=== PATIENT | male | born 1980 | race Caucasian/White ===

== ENCOUNTER 2020-09-03 15:56 | Emergency (ER) | payer OTHER, SELFPAY ==
--- NOTE | ~2020-09-03 | XR_ITS ---
EXAMINATION: XR elbow RT min 3V DATE: 09/03/2020 17:09 INDICATION: Right elbow injury. TECHNIQUE: 4 views of right elbow were obtained. COMPARISON: None. FINDINGS: Bone alignment is normal. No fracture. Joint spaces are well maintained. There is no elbow joint effu heaven. IMPRESSION: 1. No fracture. Reviewed, dictated and finalized at location A. H GRADE TEACHER IMPRESSION: 1. No fracture.
--- NOTE | ~2020-09-03 | XR_ITS ---
EXAMINATION: XR knee LT min 4V DATE: 09/03/2020 17:09 INDICATION: Left knee pain. Injury. TECHNIQUE: 4 views of left knee were obtained. COMPARISON: None. FINDINGS: Bone alignment is normal. No fracture. There is mild osteoarthritis of lateral compartment. No knee joint effusion. IMPRESSION: 1. Mild left knee osteoarthritis. Reviewed, dictated and finalized at location A. ATE SECTOR EXECUTIVE
--- NOTE | ~2020-09-03 | XR_ITS ---
EXAMINATION: XR shoulder RT min 2V DATE: 09/03/2020 17:10 INDICATION: Right shoulder pain. Injury. TECHNIQUE: 4 views of right shoulder were obtained. COMPARISON: None. FINDINGS: Bone alignment is normal. No fracture. There is mild osteoarthritis of acromioclavicular poly int. Glenohumeral joint is normal. IMPRESSION: 1. Mild right acromioclavicular joint osteoarthritis. Reviewed, dictated and finalized at location A. E CHECKER
--- NOTE | ~2020-09-03 | CT_ITS ---
EXAMINATION: CT UE RT wo con DATE: 09/03/2020 19:32 INDICATION: Right upper limb injury and pain. TECHNIQUE: Computed tomography (CT) of the right upper limb from the shoulder to the fingers was perf ormed without intravenous contrast. Automated exposure control and iterative reconstruction technique were employed. The dose-length product was 414.98 mGy-cm. COMPARISON: None FINDINGS: There is a displaced comminuted fracture of base of second metacarpal. There is a nondispla kimberlee fracture of the capitate. There is a comminuted fracture of fourth metacarpal. There is a 3 mm lo ose body dorsal to scaphoid. There is mild osteoarthritis of the elbow joint and acromioclavicular poly int. IMPRESSION: 1. Fractures of the second and fourth metacarpals and capitate. Reviewed, dictated and finalized at location A. STONE ERECTOR
--- NOTE | ~2020-09-03 | XR_ITS ---
EXAMINATION: XR humerus RT DATE: 09/03/2020 17:09 INDICATION: Right shoulder pain. Injury. TECHNIQUE: 2 views of right humerus were obtained. COMPARISON: None. FINDINGS: Bone alignment is normal. No fracture. Joint spaces are well maintained. IMPRESSION: 1. No fracture. Reviewed, dictated and finalized at location A. CHOPPER IMPRESSION: 1. No fracture.
--- NOTE | ~2020-09-03 | XR_ITS ---
EXAMINATION: XR chest 1V DATE: 09/03/2020 17:09 INDICATION: Right shoulder pain. Injury. TECHNIQUE: A single frontal view of the chest was obtained. COMPARISON: None. FINDINGS: The left lateral costophrenic angle is excluded. The chest demonstrates clear lungs without pneumonia, pleural effusion, or pneumothorax. The heart size is normal. IMPRESSION: 1. No acute cardiopulmonary disease. Reviewed, dictated and finalized at location A. NG MACHINE MECHANIC
--- NOTE | ~2020-09-03 | XR_ITS ---
EXAMINATION: XR tibia fibula LT 2V DATE: 09/03/2020 17:10 INDICATION: Left lower leg pain. Injury. TECHNIQUE: 2 views of left tibia and fibula were obtained. COMPARISON: None. FINDINGS: Bone alignment is normal. No fracture. There is mild ankle joint osteoarthritis. There is a n enthesophyte at plantar aspect of calcaneal tuberosity. IMPRESSION: 1. No fracture. Reviewed, dictated and finalized at location A. T COORDINATOR IMPRESSION: 1. No fracture.
[2020-09-03 15:57] VITALS: BP 125/82; PULSE 66; RESP 15; TEMP 36.6; O2SAT 100
[2020-09-03 16:04] VITALS: RESP 13; O2SAT 100
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
[2020-09-03 16:44] LABS: Basophils Absolute Auto 0.1 K/mm3 (0.0-0.1); Basophils Percent Auto 0.7 % (0.2-1.2); Eosinophils Absolute Auto 0.2 K/mm3 (0-0.3); Hematocrit 43.2 % (42.0-52.0); Hemoglobin 14.5 g/dL (14.0-18.0); Immature Granulocyte Absolute 0.03 K/mm3 (0.00-0.031); Immature Granulocyte Percent A 0.4 % (0-0.5); Lymphocytes Percent Auto 12.9 % (18.3-44.2); Mean Corpuscular HGB Conc 33.6 g/dl (32-36); Mean Corpuscular Hemoglobin 31.3 pg (26-34); Mean Corpuscular Volume 93.3 fl (80-100); Mean Platelet Volume 8.8 fl (7.4-10.4); Monocytes Absolute Auto 0.7 K/mm3 (0.1-0.6); Monocytes Percent Auto 7.6 % (2.6-8.5); Neutrophils Absolute Auto 6.5 K/mm3 (1.3-6.7); Neutrophils Percent Auto 76.4 % (45.5-73.1); Platelet Count Result 319 k/mm3 (150-375); Red Blood Count 4.63 M/mm3 (4.6-6.20); Red Cell Distribution Width 12.9 % (11.5-14.5); White Blood Count 8.5 K/mm3 (4.5-10.0)
[2020-09-03 16:56] LABS: Alanine Aminotransferase 39 U/L (4-50); Albumin Level 4.5 g/dL (3.5-5.1); Alkaline Phosphatase 56 U/L (38-126); Anion Gap 10 mmol/L (8-16); Aspartate Amino Transferase 45 U/L (17-59); Bilirubin,Total 0.4 mg/dL (0.2-1.3); Blood Urea Nitrogen 33 mg/dL (9-20); Calcium 9.6 mg/dL (8.4-10.2); Carbon Dioxide 28 mmol/L (22-30); Chloride 102 mmol/L (98-107); Estimated CRCL calculation 74 ml/min; Estimated Glomerular Filt Rate > 60; Glucose 104 mg/dL (75-110); Potassium 4.8 mmol/L (3.4-5.0); Sodium 140 mmol/L (137-145)
[2020-09-03] MEDS: MORPHINE SULFATE (*CRX) 4 MG/ML INJ IV PUSH (17:16)
[2020-09-03] MEDS: SODIUM CHLORIDE 0.9% IV 1,000 ML 999 ML IV CONT (17:23)
[2020-09-03 20:10] VITALS: BP 122/68; PULSE 66; RESP 14; O2SAT 97
== END 2020-09-03 21:52 | disposition home or self-care (01) ==
PROVIDERS: Emergency Provider Emergency Medicine
DX: S62.310A Displaced fracture of base of second metacarpal bone, right hand, initial encounter for closed fracture (principal); S62.304A Unspecified fracture of fourth metacarpal bone, right hand, initial encounter for closed fracture; S62.134A Nondisplaced fracture of capitate [os magnum] bone, right wrist, initial encounter for closed fracture; M19.011 Primary osteoarthritis, right shoulder; M17.12 Unilateral primary osteoarthritis, left knee; V18.4XXA Pedal cycle driver injured in noncollision transport accident in traffic accident, initial encounter; Y93.55 Activity, bike riding
CPT/HCPCS: 29125; 36415; 71045; 73030; 73060; 73080; 73200; 73564; 73590; 80053; 85025; 96361; 96365; 96375; 99284; A4565; J0131; J2270; J7030

== ENCOUNTER → 2020-09-09 12:12 | Outpatient (CLI) | payer OTHER, SELFPAY ==
--- NOTE | ~2020-09-09 | XR_ITS ---
EXAMINATION: 1. XR wrist RT w scaphoid 2. XR hand RT min 3V DATE: 09/09/2020 12:39 INDICATION: Right hand pain. TECHNIQUE: 5 views of right wrist and 3 views of right hand were obtained. COMPARISON: None. FINDINGS: RIGHT WRIST: There is an old fracture of ulnar styloid with nonunion. There is an extra-articular ob lique fracture of base of second metacarpal. The distal fracture fragment demonstrates 5 mm radial di splacement, 3 mm dorsal displacement, and 9 mm shortening. There is a nondisplaced stellate fracture of diaphysis of fourth metacarpal. There may be a nondisplaced fracture of hamate at fourth carpometa carpal joint. There is mild osteoarthritis of triscaphe joint and first and fifth carpometacarpal chelsea nts. RIGHT HAND: Again seen are the fractures of second and fourth metacarpals and possible fracture of th e hamate. There is mild osteoarthritis of triscaphe joint, first carpometacarpal joint, first and sec ond metacarpophalangeal joints, and some of the interphalangeal joints. IMPRESSION: 1. Fractures of second and fourth metacarpals. 2. Possible fracture of hamate. Reviewed, dictated and finalized at location B. S REVIEW CLERK IMPRESSION: 1. Fractures of second and fourth metacarpals. 2. Possible fracture of hamate.
== END ==
PROVIDERS: Visit Provider Surgery Plastic and Reconstructive Surgery
DX: S62.310A Displaced fracture of base of second metacarpal bone, right hand, initial encounter for closed fracture (principal); S62.354A Nondisplaced fracture of shaft of fourth metacarpal bone, right hand, initial encounter for closed fracture; M18.11 Unilateral primary osteoarthritis of first carpometacarpal joint, right hand; M19.041 Primary osteoarthritis, right hand
CPT/HCPCS: 73110; 73130

== ENCOUNTER 2020-09-16 02:03 | Outpatient (CLI) | payer OTHER, SELFPAY ==
[2020-09-16 21:22] LABS: SARS-CoV-2 RNA PCR Negative
== END 2020-09-16 02:04 | disposition home or self-care (01) ==
LOC: ANHCOVIDDT 02:06
PROVIDERS: Visit Provider Plastic Surgery
DX: Z01.812 Encounter for preprocedural laboratory examination (principal); Z20.828 Contact with and (suspected) exposure to other viral communicable diseases
CPT/HCPCS: 87635; C9803; U0003

== ENCOUNTER 2020-09-19 00:47 | Day surgery (SDC) | payer OTHER, SELFPAY ==
[2020-09-10 15:46] VITALS: BMI 26.6
--- NOTE | 2020-09-18 13:57 | WPDANESEPPF ---
Anes - Initial Pre Proc Eval Procedure: Operation Date: 09/19/20 10:30 Proposed Procedures p Open Reduction Internal Fixation Right Second Metacarpal - Colt Aguilar MD Date/Time: 09/18/20 13:57 Surgeon: Colt Aguilar MD Pre Op Diagnosis: right 2nd metacarpal fx Patient Data Age: 40 Gender: M Height: 1.75 m Weight: 81.65 kg Allergies Allergy/AdvReac Type Severity Reaction Status Date / Time No Known Allergies Allergy Verified 09/10/20 15:45 Home Medications Medication Instructions Recorded Confirmed Type ibuprofen 400 mg PO TID PRN 10 Days #30 09/03/20 09/19/20 Rx tablet oxycodone-acetaminophen 1 tablet PO Q6H PRN #14 tablet 09/03/20 09/19/20 Rx cyclobenzaprine 10 mg PO HS 09/10/20 09/19/20 History Patient hx anesthesia problems: none Family hx anesthesia problems: none PMFSH Past Medical History Medical History (Updated 09/09/20 @ 15:24 by Jay Watts MD) No pertinent past medical history Right hand pain Surgical History Surgical History H/O: vasectomy Social History Social History Smoking status: Never smoker Alcohol intake: current Drinks per week: 2 Substance use: never Gender identity (if verbalized by the patient): Male Spiritual care concerns: No Anes - Eval Final PreProcedure Day of Procedure 09/18/20 13:57 Patient weight: overweight Heart: regular rate and rhythm Lungs: clear to auscultation and normal air movement Airway: Mallampati scale class II Neurological: alert and oriented Last oral intake: >/= 8 hours ASA classification: I Emergent: no Anesthetic plan: proceed Anesthesia type and monitoring: general LMA and standard monitoring Informed Consent: The patient's anesthetic plan and its attendant risks and benefits were discussed with the patient/family/POA. Questions were solicited and answers provided to the satisfaction of the patient/family/POA.
[2020-09-19] VITALS (10 sets, daily range): BP systolic 117–126; BP diastolic 41–80; PULSE 59–81; RESP 10–20; TEMP 36.4; O2SAT 93–100
--- NOTE | ~2020-09-19 | XR_ITS ---
EXAMINATION: XR surgery orthopedic DATE: 09/19/2020 13:12 INDICATION: Right hand second metacarpal fracture. TECHNIQUE: 6 intraoperative fluoroscopic views of right hand were obtained. I was not present. Fluoro scopy exposure time was 3 minutes and 8 seconds. COMPARISON: Right hand radiographs 09/09/2020 FINDINGS: There is an oblique fracture of base of second metacarpal in near-anatomic alignment with f ixation with 3 K wires. There is a nondisplaced fracture of diaphysis of fourth metacarpal. IMPRESSION: 1. Oblique fracture of base of second metacarpal in near-anatomic alignment with fixation. 2. Nondisplaced fracture of diaphysis of fourth metacarpal. Reviewed, dictated and finalized at location A. UNICATIONS SPECIALIST IMPRESSION: 1. Oblique fracture of base of second metacarpal in near-anatomic alignment wit h fixation. 2. Nondisplaced fracture of diaphysis of fourth metacarpal.
--- NOTE | 2020-09-19 09:42 | WPDHPUPDATE1 ---
History and Physical Update Update Date/Time: 09/19/20 09:42 History and Physical has been reviewed, including an updated exam of the patient. There are NO changes in the patient's condition. Risks, benefits, and alternatives have been discussed and questions answered. Patient agrees to proceed with procedure.
[2020-09-19] MEDS: LACTATED RINGERS 1,000 ML 30 ML IV CONT ×3 (09:47→14:13)
[2020-09-19] MEDS: ceFAZolin 2 GM/D5W 50 ML 2 GM/50 ML BAG IVPB (11:13)
[2020-09-19] MEDS: LIDO 1%/EPINEPHRINE 1:100,000 20 ML VIAL INFILTRATE (11:44)
--- NOTE | 2020-09-19 13:02 | SUR.OPER ---
Ebl=5ml
--- NOTE | 2020-09-19 13:12 | P.OPB_ITS ---
Procedure Note - Brief Procedure Note - Brief Date of procedure: 09/19/20 Pre-op diagnosis: right 2nd metacarpal fx Post-op diagnosis: same Procedure performed: ORIF with c-wires x3 Anesthesia: SANCHEZA Surgeon: Colt Aguilar MD Stroke Coordinator: Marquis Estimated blood loss (mL): 5 Tourniquet time (min): 75 Drains: No Packing: No Pathology: none sent Complications: No immediate complications Condition: stable Disposition: PACU
[2020-09-19] MEDS: fentaNYL CITRATE INJ (*CRX) 100 MCG/2 ML VIAL 25 MCG IV PUSH ×8 (13:15→14:13)
[2020-09-19] MEDS: oxyCODONE HCL (*CRX) 5 MG TAB IR PO (14:36)
--- NOTE | 2020-09-19 19:00 | P.OP_ITS ---
Procedure Note - Detailed Date of procedure: 09/19/20 Pre-op diagnosis: right 2nd metacarpal fx Post-op diagnosis: same Procedure performed: ORIF of displaced fracture of the right 2nd metacarpal base Description of procedure: The right hand over the 2nd metacarpal was marked in preop. The patient was taken to the operating room and placed supine on the operating table. A time-out was held and confirmed. He was given general endotracheal anesthesia. The right upper extremity was prepped and draped in usual fashion. The C-arm was brought in and the fracture site identified with a 25 gauge hypodermic needle. The incision was marked and locally infiltrated with 1% lidocaine with epinephrine. The tourniquet was inflated to 250 mmHg. It was ultimately up for 75 minutes. The incision was made over the 2nd metatarsal crossing the carpometacarpal joint. Care was taken to identify and preserve cutaneous nerves. The periosteum was incised along the ulnar margin of the extensor carpi radialis insertion. the shaft was noted to be proximally displaced and radially displaced. The smaller fragment which is the ulnar base appeared to have its own nondisplaced fracture. Two clamps were applied after reducing the main fracture. Stability was provided with 3 0.045 in C wires driven across the base of the 2nd metacarpal and into the capatate and the 3rd metacarpal. The fixation and placement of pins was confirmed with c-arm images. Pins were cut short and bent above the periosteum. Perioistrum was repaired with 3.0 vicryl and the skin with 4.0 nyon. A sort bandage was applied. Anesthesia: GETA Surgeon: Colt Aguilar MD Gas Plumbing Inspector: Marquis Estimated blood loss (mL): 10 Tourniquet time (min): 75 Drains: No Packing: No Pathology: none sent Complications: No immediate complications Condition: stable Disposition: PACU
== END 2020-09-19 15:07 | disposition home or self-care (01) ==
PROVIDERS: Visit Provider Plastic Surgery
PROC: (CPT 26615; principal; 2020-09-19 10:30)
DX: S62.310A Displaced fracture of base of second metacarpal bone, right hand, initial encounter for closed fracture (principal); V19.40XA Pedal cycle driver injured in collision with unspecified motor vehicles in traffic accident, initial encounter
CPT/HCPCS: 26615; A9270; C1713; J0690; J1100; J2250; J2405; J2704; J3010; J7120

== ENCOUNTER 2020-11-16 00:42 | Outpatient (CLI) | payer OTHER, SELFPAY ==
[2020-11-16 18:47] LABS: SARS-CoV-2 RNA PCR Negative
== END 2020-11-16 00:43 | disposition home or self-care (01) ==
LOC: ANHCOVIDDT 00:42
PROVIDERS: Visit Provider Plastic Surgery
DX: Z01.812 Encounter for preprocedural laboratory examination (principal); Z20.822 Contact with and (suspected) exposure to COVID-19; M79.641 Pain in right hand
CPT/HCPCS: C9803; U0003; U0005

== ENCOUNTER 2020-11-20 02:11 | Day surgery (SDC) | payer OTHER, SELFPAY ==
[2020-11-08 15:40] VITALS: BMI 26.6
--- NOTE | ~2020-11-20 | XR_ITS ---
EXAMINATION: XR surgery orthopedic DATE: 11/20/2020 15:04 INDICATION: C-wire fixation removal from the right hand TECHNIQUE: 3 fluoroscopic spot images of the right hand were obtained during procedure performed by Cyn Aguilar. Radiologist was not present for the imaging or procedure. The amount of fluoroscopy time us ed during this procedure was 0.1 minutes. COMPARISON: None. FINDINGS: Images demonstrate removal of the 2 more proximal fixation wires which extend across the base of the second metacarpal into the third metacarpal with residual lucent pin tracts on the final image. A thi rd more distal fixation wire extending across the base of the second and third metacarpals into the f ourth metacarpal remains in place on the final image. There appears to be bridging callus formation a t the periphery of a decreasing lucency along the oblique fracture plane at the proximal metadiaphyse al region of the second metacarpal. The alignment of the healing fracture appears grossly anatomic. IMPRESSION: 1. Fluoroscopy utilized during removal of a couple fixation wires extending across a healing fracture at the proximal right second metacarpal. See procedure note for further detail. Reviewed, dictated and finalized at location A. WARE CLIENT ARCHITECT IMPRESSION: 1. Fluoroscopy utilized during removal of a couple fixation wires extending acr oss a healing fracture at the proximal right second metacarpal. See procedure n ote for further detail.
--- NOTE | 2020-11-20 07:29 | WPDHPUPDATE1 ---
History and Physical Update Update Date/Time: 11/20/20 07:29 History and Physical has been reviewed, including an updated exam of the patient. There are NO changes in the patient's condition. Risks, benefits, and alternatives have been discussed and questions answered. Patient agrees to proceed with procedure.
--- NOTE | 2020-11-20 12:50 | WPDANESEPPF ---
Anes - Initial Pre Proc Eval Procedure: Operation Date: 11/20/20 15:00 Proposed Procedures p Removal Of Three Fixation C-Wires Right Hand - Colt Aguilar MD Date/Time: 11/20/20 12:50 Surgeon: Colt Aguilar MD Pre Op Diagnosis: Status Post ORIF Of The Right Second Metacarpal Patient Data Age: 40 Gender: M Height: 1.75 m Weight: 83.4 kg Allergies Allergy/AdvReac Type Severity Reaction Status Date / Time No Known Allergies Allergy Verified 11/08/20 15:21 Home Medications Medication Instructions Recorded Confirmed Type ibuprofen 400 mg PO TID PRN 10 Days #30 09/03/20 11/08/20 Rx tablet Patient hx anesthesia problems: none Family hx anesthesia problems: none PMFSH Past Medical History Medical History (Updated 09/09/20 @ 15:24 by Jay Watts MD) No pertinent past medical history Right hand pain Surgical History Surgical History H/O: vasectomy Social History Social History Smoking status: Never smoker Second hand tobacco smoke exposure: No Alcohol intake: current Drinks per week: 2 Substance use: never Living arrangements: with family Gender identity (if verbalized by the patient): Male Spiritual care concerns: No Anes - Eval Final PreProcedure Day of Procedure 11/20/20 12:50 Patient weight: overweight Heart: regular rate and rhythm Lungs: clear to auscultation and normal air movement Airway: Mallampati scale class II Neurological: alert and oriented Last oral intake: >/= 8 hours ASA classification: I Emergent: no Anesthetic plan: proceed Anesthesia type and monitoring: general GIVS and LMA Informed Consent: The patient's anesthetic plan and its attendant risks and benefits were discussed with the patient/family/POA. Questions were solicited and answers provided to the satisfaction of the patient/family/POA.
[2020-11-20 12:53] VITALS: BP 110/69; PULSE 60; RESP 14; TEMP 36.8; O2SAT 99
[2020-11-20] MEDS: LACTATED RINGERS 1,000 ML 30 ML IV CONT (13:19)
[2020-11-20 15:05] VITALS: BP 103/64; PULSE 66; RESP 16; O2SAT 95
--- NOTE | 2020-11-20 15:17 | PM.PROC ---
Procedure Note - Detailed Date of procedure: 11/20/20 Pre-op diagnosis: Status Post ORIF Of The Right Second Metacarpal Post-op diagnosis: same Procedure performed: C-wire removal x 3 right 2nd metacarpal. Anesthesia: MAC Surgeon: Colt Aguilar MD Estimated blood loss (mL): 0 Tourniquet time (min): 15 Drains: No Packing: No Pathology: none sent Complications: No immediate complications Condition: stable Disposition: same day
--- NOTE | 2020-11-20 15:20 | PM.PROC ---
Procedure Note - Detailed Date of procedure: 11/20/20 Pre-op diagnosis: Status Post ORIF Of The Right Second Metacarpal Post-op diagnosis: same Procedure performed: Removal of 3 fixation C wires from the right 2nd metacarpal Description of procedure: the hand was marked in the holding area. Patient was taken to the operating room and placed supine on the operating table. Time-out was held and confirmed. He was given IV sedation. Extremity was prepped and draped in usual fashion. The site was marked for incision after imaging with the C-arm. The site was locally infiltrated with 1% lidocaine with epinephrine. The tourniquet was inflated to 250 mmHg. The incision was made as marked and dissection was carried bluntly through the subcutaneous tissue. Scar was identified and this was incised 15 blade after reimaging. The 3 pins were identified and pulled out without difficulty. The skin was closed with a running 5 0 nylon suture. A small bulky bandage was applied and he is discharged from the operating room stable condition a prescription for hydrocodone 5 / 325 5. Was sent to his pharmacy Surgeon: Colt Aguilar MD
[2020-11-20 15:35] VITALS: BP 119/78; PULSE 54; RESP 14
[2020-11-20 15:50] VITALS: BP 121/74; PULSE 59; RESP 14
== END 2020-11-20 16:10 | disposition home or self-care (01) ==
PROVIDERS: Visit Provider Plastic Surgery
PROC: (CPT 20694; principal; 2020-11-20 15:00)
DX: Z47.2 Encounter for removal of internal fixation device (principal); S62.310D Displaced fracture of base of second metacarpal bone, right hand, subsequent encounter for fracture with routine healing
CPT/HCPCS: 20680; A9270; J2001; J2250; J2704; J3010; J7120